=== PATIENT | male | born 1960 | race African-American/Black ===

== ENCOUNTER 2019-06-20 03:47 | Emergency (ER) | payer OTHER | END 2019-06-20 05:00 | disposition home or self-care (01) | LOC: JER 03:47 ==

== ENCOUNTER 2019-10-13 06:33 | Emergency (ER) | payer OTHER ==
[2019-10-13 07:02] VITALS: BMI 32.8
[2019-10-13] MEDS ORDERED: KETOROLAC TROMETHAMINE 60 MG/2 ML VIAL IM ONE (07:31)
--- NOTE | 2019-10-13 08:24 | PDOC ---
History of Present Illness - General Chief Complaint: Pain, Acute Stated Complaint: SHOULDER PAIN Time Seen by Provider: 10/13/19 07:28 History Source: Patient Exam Limitations: No Limitations - History of Present Illness Initial Comments: 10/13/19 07:29 59-year-old male presents to the emergency room with complaints of left shoulder pain intermittently for the past 3 weeks. Patient states initially started when he woke up in the morning he felt pain in his shoulder followed by tingling to his left arm. Patient states symptoms have been intermittent but never completely resolved. Patient states history of rotator cuff injury numerous years ago and does work as a public health social worker. Patient denies limited range of motion, chest pain, palpitations, difficulty breathing, swelling of the extremity, or skin discoloration. Timing/Duration: other Severity: mild Associated Symptoms: reports: other Past History - Travel Traveled outside of the country in the last 30 days: Yes - Past Medical History Allergies/Adverse Reactions: Allergies Allergy/AdvReac Type Severity Reaction Status Date / Time No Known Drug Allergies Allergy Verified 10/13/19 07:02 Home Medications: Ambulatory Orders Metformin HCl [Glucophage] 1,000 mg PO BID 06/20/19 Tobramycin 0.3% Ophth Soln [Tobrex *Ophthalmic Solution*] 1 drop TID 06/20/19 Tobramycin 0.3% Ophth Soln [Tobrex Ophthalmic Solution -] 1 drop OS TID 7 Days # 1 drops 06/20/19 COPD: No - Immunization History Immunization Up to Date: Yes - Psycho Social/Smoking Cessation Hx Smoking History: Never smoked Number of Cigarettes Smoked Daily: 20 Hx Alcohol Use: No Drug/Substance Use Hx: No Patient Lives Alone: No Lives with/in: spouse/SO Review of Systems - Review of Systems Able to Perform ROS?: Yes Constitutional: No: Symptoms Reported HEENTM: No: Symptoms Reported Respiratory: No: Symptoms reported Cardiac (ROS): No: Symptoms Reported ABD/GI: No: Symptoms Reported : No: Symptoms Reported Musculoskeletal: Yes: Joint Pain (Left shoulder) Integumentary: No: Symptoms Reported Neurological: Yes: Tingling. No: Numbness, Weakness, Dizziness Endocrine: No: Symptoms Reported Hematologic/Lymphatic: No: Symptoms Reported *Physical Exam - Vital Signs Last Vital Signs Temp Pulse Resp BP Pulse Ox 97.9 F 78 16 181/76 H 99 10/13/19 06:35 10/13/19 06:35 10/13/19 06:35 10/13/19 06:35 10/13/19 06:35 - Physical Exam General Appearance: Yes: Nourished, Appropriately Dressed. No: Apparent Distress HEENT: negative: Pale Conjunctivae Neck: positive: Normal Thyroid, Supple Respiratory/Chest: positive: Lungs Clear, Normal Breath Sounds. negative: Chest Tender, Respiratory Distress, Accessory Muscle Use Cardiovascular: positive: Regular Rhythm, Regular Rate. negative: Murmur Extremity: positive: Normal Capillary Refill, Normal Inspection, Normal Range of Motion. negative: Tender, Coldness, Swelling Integumentary: positive: Normal Color, Warm, Moist Neurologic: positive: Motor Strength 5/5 (Shoulder shrug and hand grasp) Medical Decision Making - Medical Decision Making 10/13/19 07:35 Chief complaint: Patient with left shoulder pain upon awakening a few weeks ago followed by tingling to the arm that has been intermittent since. Patient states old rotator cuff injury numerous years ago without intervention. Patient states took Aleve with good effect. Exam: Patient with full range of motion of the left upper extremity. Patient with normal sensory description. No reproducible tenderness. No cervical tenderness. Plan: EKG and Toradol IM as this is likely tendinitis versus radiculopathy. Discharge - Discharge Information Problems reviewed: Yes Clinical Impression/Diagnosis: Tendinitis, Radiculopathy Condition: Fair Disposition: HOME - Follow up/Referral Referrals: Evan Jaramillo MD [Staff Physician] - - Patient Discharge Instructions Patient Printed Discharge Instructions: DI for Cervical Radiculopathy, DI for Shoulder Tendinopathy Additional Instructions: Please take medication for the discomfort. Avoid over usage of the extremity. Follow-up with orthopedist. - Post Discharge Activity
[2019-10-13 08:31] VITALS: BP 143/87; PULSE 67; TEMP 98.7
[2019-10-13] MEDS ORDERED: KETOROLAC TROMETHAMINE 60 MG/2 ML VIAL ONE (08:33)
--- NOTE | 2019-10-13 10:00 | EKG ---
Test Reason : Blood Pressure : / mmHG Vent. Rate : 074 BPM Atrial Rate : 074 BPM P-R Int : 202 ms QRS Dur : 082 ms QT Int : 358 ms P-R-T Axes : 068 -19 024 degrees QTc Int : 397 ms NORMAL SINUS RHYTHM MINIMAL VOLTAGE CRITERIA FOR LVH, MAY BE NORMAL VARIANT BORDERLINE ECG NO PREVIOUS ECGS AVAILABLE Confirmed by NISA JOSEPH MD ([id number]) on 10/13/2019 9:59:59 AM Referred By: Confirmed By:NISA JOSEPH MD
== END 2019-10-13 08:00 | disposition home or self-care (01) ==
LOC: JER 06:33
PROC: 3E0233Z Introduction of Anti-inflammatory into Muscle, Percutaneous Approach (ICD-10-PCS; principal; 2019-10-13)
DX: M54.12 Radiculopathy, cervical region (principal); M77.9 Enthesopathy, unspecified; M75.82 Other shoulder lesions, left shoulder; E11.9 Type 2 diabetes mellitus without complications; Z79.84 Long term (current) use of oral hypoglycemic drugs
CPT/HCPCS: 73030-TC-LT-FY; 93005; 93010; 96372; 99281-25